=== PATIENT | male | born 1975 | race Hispanic/Latino ===

== ENCOUNTER 2021-04-13 11:17 | Emergency (ER) | payer BC, SELFPAY ==
--- NOTE | 2021-04-13 11:28 | ED.SKABFB ---
HPI - Skin/Abscess/Foreign Bdy General Chief complaint: Skin/Abscess/Foreign Body Stated complaint: Skin Hurts Time Seen by Provider: 04/13/21 11:29 Source: patient, family (), RN notes reviewed and old records reviewed Mode of arrival: ambulatory Limitations: no limitations History of Present Illness HPI narrative: 45-year-old male presents to the [facility] with with complaints of my skin hurts. Patient has no lesions. Patient states that sure it made his skin. No muscular pain. Unable to reproduce pain. No lesions, rashes, sores. Status generalized over his skin. No localization. Patient reports that he had something similar a couple of years ago. Reviewed records from 2018 when he was seen in the ER and told to take Benadryl, was given IV fluids. Patient denies any abdominal pain, fevers, nausea, vomiting. Denies any chest pain or shortness of breath. No swelling of the lips or tongue. No rashes. Related Data Home Medications Medication Instructions Recorded Confirmed No Home Medications 04/13/21 04/13/21 Allergies Allergy/AdvReac Type Severity Reaction Status Date / Time No Known Allergies Allergy Unverified 04/13/21 11:27 Review of Systems Constitutional: Constitutional: Reports no additional constitutional complaints, Denies chills and Denies fever(s) Eyes: Eyes: Reports no additional eye complaints, Denies change in vision and Denies photophobia ENT: Reports system reviewed and no additional complaints, except as documented Cardiovascular: Cardiovascular: Reports no additional cardiovascular complaints Respiratory: Respiratory: Reports no additional respiratory complaints Gastrointestinal: Gastrointestinal: Reports no additional gastrointestinal complaints Genitourinary: Genitourinary: Reports no additional male genitourinary complaints Musculoskeletal: Musculoskeletal: Reports no additional musculoskeletal complaints Integumentary/Breasts: Skin/Breast: Reports as per HPI Comments: Skin pain Neurologic: Reports system reviewed and no additional complaints, except as documented, Denies vertigo, Denies dizziness, Denies syncope, Denies focal weakness, Denies numbness and Denies weakness Psychiatric: Psychiatric: Reports no additional psychiatric complaints Allergic/Immunologic: Allergic/Immunologic: Reports no additional allergic/immunologic complaints PMF Past Medical History Medical History (Updated 04/13/21 @ 17:55 by Jovita Tristan) Patient denies medical problems Surgical History Surgical History (Updated 04/13/21 @ 17:55 by Jovita Tristan) No significant past surgical history Social History Social History (Updated 04/13/21 @ 17:55 by Jovita Tristan) Living arrangements: with family Gender identity (if verbalized by the patient): Male Comments At the time of my signature, I reviewed and agree with the nursing past medical, surgical, social, and family history. There is no relevant family history pertinent to the patient complaint. Exam Const: General: healthy appearing, no acute distress and alert Nutritional Appearance: well nourished Orientation/consciousness: patient oriented x3 Limitations: no limitations HENMT: Head: normal to inspection Ears: external ears normal Eyes: Conjunctivae: conjunctivae normal Pupils: Equal, round and reactive pupils present Neck: Neck: normal visual inspection, no lymphadenopathy and no meningeal signs Chest: Chest palpation & inspection: normal inspection of the chest Resp: Effort & Inspection: normal respiratory effort and no use of accessory muscles Auscultation: clear to auscultation bilaterally, no crackles, no rales, no rhonchi and no wheezes Cardio: Rate: regular rate Rhythm: regular rhythm GI: GI Palp: Yes Soft to palpation and No Tenderness to palpation present (GI) Back/Spine/Pelvis: Back: no CVA tenderness Skin: General skin exam: normal color, no rashes or lesions noted, turgor normal, skin n
[2021-04-13 11:29] VITALS: BP 119/61; PULSE 60; RESP 16; TEMP 36.7; O2SAT 100
[2021-04-13 11:57] LABS: Glucose Point of Care 102 mg/dl (65-105)
== END 2021-04-13 12:03 | disposition home or self-care (01) ==
PROVIDERS: Emergency Provider Nurse Practitioner
DX: M79.10 Myalgia, unspecified site (principal); R20.9 Unspecified disturbances of skin sensation
CPT/HCPCS: 82948; 99212; G0463

== ENCOUNTER 2021-04-14 09:48 | Emergency (ER) | payer OTHER, BC, SELFPAY ==
--- NOTE | ~2021-04-14 | CT_ITS ---
EXAMINATION: CT abd pelvis lumbar w con EXAM DATE: 04/14/2021 11:36 INDICATION: Abdominal pain, bilateral flank pain. TECHNIQUE: Spiral CT of the abdomen and pelvis was performed following intravenous injection of 100 m L Omnipaque 350. Axial, coronal and sagittal images of the abdomen and pelvis were reviewed. Spiral CT of the lumbar spine was performed with same injection of contrast. Axial, coronal and sagittal i mages lumbar spine were reviewed. The dose-length product (DLP) for this examination was 502.77 mGy -cm. The exposure was tailored according to patient size (auto mA exposure control), and iterative r econstruction (ASIR) was used as additional dose reduction technique. There is no prior study for co mparison. FINDINGS: ABDOMEN PELVIS: The liver, spleen, adrenal glands and pancreas are unremarkable. Gallbladder is unre markable. No biliary obstruction. Portal and splenic veins are patent. Kidneys enhance symmetrical ly. There is no hydronephrosis. The prostate is unremarkable. The bladder is unremarkable. There is left lower retroperitoneal lymph node measuring 9 x 11 mm, upper limits of normal. Lymph node l eft pelvic inlet measuring 2.5 x 1.0 cm, mildly enlarged. The appendix is normal. The stomach and small bowel are unremarkable. There is expected amount of c olonic stool. No free intraperitoneal gas. The heart is normal in size. There are no pericardial or pleural effusions. Scattered linear basilar atelectasis. There are no osteoblastic or osteolyti c lesions identified. LUMBAR SPINE: There is no evidence of acute lumbar fracture. There is no disc space widening or trau matic vertebral body subluxation suspected. Paraspinal soft tissue is unremarkable. There is mild t o moderate loss of the L4-5 disc height with 3 mm anterolisthesis. No spondylolysis. Mild chronic com pression fracture of L1. Level by level evaluation: T12-L1: Disc does not extend beyond the endplate margin. Facet arthropathy: None. Neural foraminal stenosis: No stenosis. Central canal stenosis: No stenosis. L1-L2: There is a mild diffuse disc bulge. Facet arthropathy: Mild. Neural foraminal stenosis: No stenosis. Central canal stenosis: No stenosis. L2-L3: There is a mild diffuse disc bulge. Facet arthropathy: Mild. Neural foraminal stenosis: Mild right. Central canal stenosis: Mild. L3-L4: There is a mild diffuse disc bulge. Facet arthropathy: Mild to moderate. Neural foraminal stenosis: Mild to moderate bilateral. Central canal stenosis: Mild to moderate. L4-L5: There is a mild to moderate diffuse disc bulge. Facet arthropathy: Severe. Neural foraminal stenosis: Moderate to severe right, moderate left. Central canal stenosis: Moderate centrally, moderate to severe bilateral lateral recess stenosis. L5-S1: There is a mild diffuse disc bulge. Facet arthropathy: Moderate to severe left, moderate right. Neural foraminal stenosis: Mild to moderate bilateral. Central canal stenosis: No stenosis. IMPRESSION: 1. No acute intra-abdominal findings. 2. Bibasilar scattered subsegmental atelectasis. 3. L4-5 advanced facet arthropathy, significant lateral recess stenosis, grade 1 anterolisthesis. 4. Lower retroperitoneal, left pelvic borderline sized lymph nodes, probably reactive but consider 3 month follow-up abdomen pelvis CT. Reviewed, dictated and finalized at location A. IMPRESSION: 1. No acute intra-abdominal findings. 2. Bibasilar scattered subsegmental atelectasis. 3. L4-5 advanced facet arthropathy, significant lateral recess stenosis, grade 1 anterolisthesis. 4. Lower retroperitoneal, left pelvic borderline sized lymph nodes, probably r eactive
[2021-04-14 09:52] VITALS: BP 114/80; PULSE 71; RESP 16; TEMP 36.4; O2SAT 100
--- NOTE | 2021-04-14 09:56 | ED.BACK ---
HPI - Back Pain/Injury General Chief Complaint: Back Pain/Injury Stated Complaint: Back Pain Time Seen by Provider: 04/14/21 09:54 Source: patient Mode of arrival: ambulatory Limitations: no limitations History of Present Illness HPI Narrative: Patient is a 45 previously healthy male presenting for evaluation of abdominal pain and back pain. Pt has had no difficulty with ambulation, but reports lower back pain which is dull, aching in nature. Pt also reports frontal abdominal pain in the lower abdomen, and reported burning with urination. He additional reports skin pain all over his body, but denies any rashes or lesions. Patient was seen yesterday at an urgent care, examination was negative and he was told to follow-up with his primary care physician. He has been taking Benadryl and Aleve without much improvement in his symptoms. He denies any history of IV drug use, alcohol use or tobacco use. Denies history of back pain. Patient is quite physically fit per his partner at bedside. States that he works out daily. Patient denies any heavy bending or lifting outside of his usual. No recent fall or injury. No inciting event when the pain began. Patient states that the skin irritation has been present over the past 2 weeks, also reports lower back pain has been worsening over the past 72 hours. Patient denies any fever, chills, nausea or vomiting. No chest pain, cough or shortness Related Data Allergies Allergy/AdvReac Type Severity Reaction Status Date / Time No Known Allergies Allergy Verified 04/14/21 09:56 Review of Systems Review of Systems: CONSTITUTIONAL: Denies fever, chills, or sweats. EYES: Denies visual changes, redness, or discharge. ENT: Denies rhinorrhea, congestion, sore throat, or otalgia. CARDIOVASCULAR: Denies chest pain, palpitations, or edema. RESPIRATORY: Denies cough or dyspnea. GASTROINTESTINAL: Reports abdominal pain, without nausea or vomiting GENITOURINARY: Reports dysuria, denies hematuria SKIN: Denies rash or itching, no hives, reports skin pain in both arms MUSCULOSKELETAL: Reports back pain NEUROLOGIC: Denies headache, numbness, or weakness. [facility] Past Medical History Medical History Patient denies medical problems Surgical History Surgical History No significant past surgical history Social History Social History (Updated 04/14/21 @ 10:11 by Jennie Clay MD) Smoking status: Never smoker Second hand tobacco smoke exposure: No Alcohol intake: never Substance use: never Living arrangements: with family Occupation/Education: occupation Additional occupation/education comments: Works for a [employer] company Gender identity (if verbalized by the patient): Male Exam Narrative: GENERAL: Awake, alert, conversant HEAD: Normocephalic, atraumatic. EYES: PERRLA and EOMI. ENT: Nares clear, no rhinorrhea or epistaxis. Mucous membranes moist. NECK: Supple. CHEST: No respiratory distress, breathing even and non labored HEART: Regular rate, sinus rhythm ABDOMEN:Non distended, non tender Thorax: Positive lumbar midline tenderness, no cervical or thoracic midline tenderness, positive lumbar paraspinal tenderness bilaterally, positive CVA tenderness bilaterally EXTREMITIES: Normal range of motion. No edema. SKIN: Warm, dry, no rash. NEURO:No focal deficits. Alert and oriented x3 Course Vital Signs Vital signs: Vital Signs Temperature 36.4 C 04/14/21 09:52 Pulse Rate 71 04/14/21 09:52 Respiratory Rate 16 04/14/21 09:52 Blood Pressure 114/80 04/14/21 09:52 Pulse Oximetry 100 04/14/21 09:52 Temperature 36.4 C 04/14/21 09:52 Pulse Rate 71 04/14/21 09:52 Respiratory Rate 16 04/14/21 09:52 Blood Pressure 114/80 04/14/21 09:52 Pulse Oximetry 100 04/14/21 09:52 MDM - Back Pain/Injury MDM Narrative Medical decision making narrat
[2021-04-14 10:23] LABS: Basophils Absolute Auto 0.1 K/mm3 (0.0-0.1); Basophils Percent Auto 0.6 % (0.2-1.2); Eosinophils Absolute Auto 0.3 K/mm3 (0-0.3); Eosinophils Percent Auto 3.8 % (0-4.4); Hematocrit 37.7 % (42.0-52.0); Hemoglobin 13.8 g/dL (14.0-18.0); Immature Granulocyte Absolute 0.06 K/mm3 (0.00-0.031); Immature Granulocyte Percent A 0.7 % (0-0.5); Lymphocytes Absolute Auto 1.04 K/mm3 (0.9-3.2); Mean Corpuscular HGB Conc 36.6 g/dl (32-36); Mean Corpuscular Hemoglobin 31.4 pg (26-34); Mean Corpuscular Volume 85.7 fl (80-100); Mean Platelet Volume 9.6 fl (7.4-10.4); Monocytes Absolute Auto 0.7 K/mm3 (0.1-0.6); Monocytes Percent Auto 7.9 % (2.6-8.5); Neutrophils Absolute Auto 6.5 K/mm3 (1.3-6.7); Platelet Count Result 276 k/mm3 (150-375); Red Cell Distribution Width 11.9 % (11.5-14.5); White Blood Count 8.7 K/mm3 (4.5-10.0)
[2021-04-14] MEDS: MORPHINE SULFATE (*CRX) 4 MG/ML INJ 2 MG IV PUSH (10:24)
[2021-04-14] MEDS: SODIUM CHLORIDE 0.9% IV 1,000 ML 999 ML IV CONT (10:24)
[2021-04-14] MEDS: ONDANSETRON INJ 4 MG/2 ML VIAL IV PUSH (10:24)
[2021-04-14] MEDS: ACETAMINOPHEN 500 MG TABLET 1000 MG PO (10:24)
[2021-04-14 10:55] LABS: Add Urine Microscopic? NO; Appearance Urine Clear (Clear); Bilirubin Urine Negative (Negative); Blood Urine Negative (Negative); Color Urine Yellow (Yellow); Glucose Urine UA Negative (Negative); Ketones Urine Negative (Negative); Leukocyte Esterase Ur Negative LEU/UL (Negative); Nitrate Urine Negative (Negative); Protein Urine Negative (Negative); Specific Grav Ur 1.018 (1.001-1.035); Urobilinogen Urine Negative mg/dL (<2.0)
[2021-04-14 11:12] LABS: Alanine Aminotransferase 30 U/L (4-50); Albumin Level 4.2 g/dL (3.5-5.1); Alkaline Phosphatase 102 U/L (38-126); Anion Gap 6 mmol/L (8-16); Aspartate Amino Transferase 24 U/L (17-59); Bilirubin,Total 0.5 mg/dL (0.2-1.3); Blood Urea Nitrogen 15 mg/dL (9-20); Calcium 9.1 mg/dL (8.4-10.2); Carbon Dioxide 27 mmol/L (22-30); Chloride 106 mmol/L (98-107); Estimated CRCL calculation 75 ml/min; Estimated Glomerular Filt Rate > 60; Glucose 108 mg/dL (65-110); Lipase 80 U/L (23-300); Potassium 4.6 mmol/L (3.4-5.0); Sodium 139 mmol/L (137-145)
[2021-04-14 12:42] LABS: Erythrocyte Sedimentation Rate 26 mm/hr (0-20)
[2021-04-14 12:47] VITALS: BP 110/65; PULSE 58; RESP 16; O2SAT 99
[2021-04-14 13:02] LABS: CRP 3.3 mg/dL (<1.0)
[2021-04-14 13:43] LABS: Creatine Kinase 120 U/L (55-170)
== END 2021-04-14 12:48 | disposition home or self-care (01) ==
PROVIDERS: Emergency Provider Emergency Medicine; PCP Family Medicine
DX: M48.061 Spinal stenosis, lumbar region without neurogenic claudication (principal); M48.50XA Collapsed vertebra, not elsewhere classified, site unspecified, initial encounter for fracture
CPT/HCPCS: 36415; 72132; 74177; 80053; 81003; 82550; 83690; 85025; 85652; 86140; 96361; 96374; 96375; 99284; A9270; J2270; J2405; J7030; Q9967

== ENCOUNTER 2021-06-01 08:25 | Emergency (ER) | payer OTHER, BC, SELFPAY ==
--- NOTE | ~2021-06-01 | CT_ITS ---
EXAMINATION: CT lumbar spine wo con DATE: 06/01/2021 11:40 INDICATION: Compression fracture. TECHNIQUE: Computed tomography (CT) of the lumbar spine was performed without intravenous contrast. A utomated exposure control and iterative reconstruction technique were employed. The dose-length produ ct was 618.82 mGy-cm. COMPARISON: CT lumbar spine 04/14/2021 FINDINGS: There is 4 mm anterolisthesis of L4 on L5. There is mild chronic anterior wedging of T11-L1 vertebral bodies. There is mildly decreased disc height at L4-L5. There is an increased number of no rmal-sized retroperitoneal lymph nodes, likely reactive. The following disc levels are specifically d iscussed: L1-L2: The disc is bulging. There is mild bilateral facet joint osteoarthritis. There is mild bilater al neural foraminal stenosis. There is no central canal stenosis. L2-L3: The disc is bulging. There is mild bilateral facet joint osteoarthritis. There is mild bilater al neural foraminal stenosis. There is mild central canal stenosis. L3-L4: The disc is bulging. There is moderate bilateral facet joint osteoarthritis. There is moderate bilateral neural foraminal stenosis. There is mild central canal stenosis. L4-L5: The disc is bulging. There is severe bilateral facet joint osteoarthritis. There is moderate b ilateral neural foraminal stenosis. There is mild central canal stenosis. L5-S1: The disc does not extend beyond the endplate margin. There is severe bilateral facet joint ost eoarthritis. There is mild bilateral neural foraminal stenosis. There is no central canal stenosis. IMPRESSION: 1. Moderate lumbar spondylosis. Reviewed, dictated and finalized at location A. [employer]
[2021-06-01 09:30] VITALS: BP 110/63; PULSE 61; RESP 18; TEMP 36.9; O2SAT 99
--- NOTE | 2021-06-01 11:04 | ED.GENADULT ---
HPI - General Adult General Chief complaint: Back Pain/Injury Stated complaint: back pain/needs work release Time Seen by Provider: 06/01/21 10:05 Source: patient Mode of arrival: ambulatory Limitations: no limitations History of Present Illness HPI narrative: Patient presents for evaluation of low back pain. He was seen at urgent care at the end of March for the same complaint. He was referred to the emergency department at that time. Documentation from that ER stay indicates that there was no precipitating event. Patient had a CT of his abdomen pelvis as well as lumbar spine. CT showed bibasilar scattered subsegmental atelectasis, L4-5 advanced facet arthropathy, significant lateral recess stenosis, grade 1 anterolisthesis, retroperitoneal, left pelvic borderline size lymph nodes, probable reactive. There was also a chronic L1 compression fracture. Pt tells me today that four days prior to his presentation at urgent care he was moving a copy machine at work and felt a burst of pain in his low back. He states he is under workman's compensation claim but has not been evaluated by physician associated with this claim. He is unable to get in to see his primary care provider for several months. He states he was advised by his employer to come to the ER for assessment of interval progression of his injury. He states his pain level is 1/10. He describes this as a squeezing sensation. No radicular component. No saddle anesthesia. No bladder or bowel incontinence. He is not taking any medication for his pain. He has been on light duty at work. Related Data Allergies Allergy/AdvReac Type Severity Reaction Status Date / Time No Known Allergies Allergy Verified 04/14/21 09:56 Review of Systems Review of Systems: CONSTITUTIONAL: Denies fever, chills, or sweats. EYES: Denies visual changes, redness, or discharge. ENT: Denies rhinorrhea, congestion, sore throat, or otalgia. CARDIOVASCULAR: Denies chest pain, palpitations, or edema. RESPIRATORY: Denies cough or dyspnea. GASTROINTESTINAL: Denies abdominal pain, nausea, vomiting, or diarrhea. GENITOURINARY: Denies dysuria or hematuria. SKIN: Denies rash or itching. MUSCULOSKELETAL: Reports back pain. Denies joint pain, or myalgia. NEUROLOGIC: Denies headache, numbness, dizziness, or weakness. PSYCHIATRIC: Denies anxiety or depression. [facility] Past Medical History Medical History (Updated 06/01/21 @ 12:20 by IVONNE Marino, ) Back pain Patient denies medical problems Surgical History Surgical History No significant past surgical history Family History Family History Mother No pertinent family history Social History Social History Smoking status: Never smoker Second hand tobacco smoke exposure: No Alcohol intake: never Substance use: never Additional occupation/education comments: Works for a [employer] company Gender identity (if verbalized by the patient): Male Exam Narrative: GENERAL: Well-appearing, well-nourished, and in no acute distress. HEAD: Normocephalic, atraumatic. EYES: PERRLA and EOMI. ENT: Nares clear, no rhinorrhea or epistaxis. Mucous membranes moist. Oropharynx without tonsillar hypertrophy exudate or other lesions. Bilateral TMs pearly sharp nonbulging NECK: Supple. No adenopathy or masses. No carotid bruits or JVD CHEST: Clear to auscultation. No respiratory distress. No wheezes rales or rhonchi HEART: Regular rate and rhythm. No murmur heard. Normal peripheral pulses. ABDOMEN: Soft, nontender, nondistended, normal active bowel sounds. BACK: Tenderness in midline and paraspinous muscles bilaterally of the lumbar spine EXTREMITIES: Normal range of motion. No edema. SKIN: Warm, dry, no rash. NEURO: No focal deficits. Alert and oriented x3. PSYCH: No
== END 2021-06-01 12:52 | disposition home or self-care (01) ==
PROVIDERS: Emergency Provider Nurse Practitioner
DX: M51.86 Other intervertebral disc disorders, lumbar region (principal)
CPT/HCPCS: 72131; 99284

== ENCOUNTER 2022-11-16 17:04 | Emergency (ER) | payer OTHER, SELFPAY ==
--- NOTE | ~2022-11-16 | XR_ITS ---
EXAMINATION: XR abdomen obstructive series DATE: 11/16/2022 17:58 INDICATION: Abdominal pain TECHNIQUE: Upright and supine views of the abdomen were obtained. COMPARISON: None. FINDINGS: No free intraperitoneal gas is identified. There appears to be a small amount of gas in the pylorus and fundus of the otherwise fluid-filled stomach on the upright view. A large volume of colo caity stool is present. The lung bases are clear. IMPRESSION: 1. Constipation. Reviewed, dictated and finalized at location F. IMPRESSION: 1. Constipation.
[2022-11-16 17:18] VITALS: BP 147/83; PULSE 60; RESP 14; TEMP 36.2; O2SAT 98
--- NOTE | 2022-11-16 17:18 | ED.ABDPAIN ---
HPI - Abdominal Pain General Chief Complaint: Back Pain/Injury Stated Complaint: Pain in back & stomach Time Seen by Provider: 11/16/22 17:18 Source: patient Mode of arrival: ambulatory Limitations: no limitations History of Present Illness HPI narrative: Georges is a 47-year-old male patient presenting to the clinic today with complaints of stomach and back pain that began this morning. He reports pain feel as though his started in the right lower back and radiates into the abdomen. He denies any urinary symptoms or penile discharge. Last bowel movement was this morning and normal for him. Denies any blood in his stool. No nausea or vomiting. No injury known to his back. States that position changes make it worse and he is unable to lay on either side. Related Data Home Medications Medication Instructions Recorded Confirmed No Home Medications 11/16/22 11/16/22 Allergies Allergy/AdvReac Type Severity Reaction Status Date / Time No Known Allergies Allergy Verified 11/16/22 17:06 Review of Systems Review of Systems: Pertinent positives per HPI. Patient denies any fever, chills, rash, headache, visual changes, dizziness, cough, runny nose, sore throat, shortness of breath, chest pain, palpitations, nausea, vomiting, diarrhea, constipation, abdominal pain, or any urinary issues. [facility] Past Medical History Medical History Back pain Patient denies medical problems Surgical History Surgical History No significant past surgical history Family History Family History Mother No pertinent family history Social History Social History Smoking status: Never smoker Second hand tobacco smoke exposure: No Alcohol intake: never Substance use: never Living arrangements: with family Occupation/Education: occupation Additional occupation/education comments: Works for a [employer] Gender identity (if verbalized by the patient): Male Comments At the time of my signature, I reviewed and agree with the nursing past medical, surgical, social, and family history. There is no relevant family history pertinent to the patient complaint. Exam Narrative: General: Well-developed, well nourished, in no apparent distress. Head: Normocephalic, atraumatic. Cardio: Regular rate and rhythm, s1 and s2 normal, no murmur appreciated. Resp: Clear to auscultation bilaterally, no rhonchi, rales, wheezing or rubs. Abdomen: Soft, pliable, bowel sounds present in all quadrants, mild tender to palpation over the mid abdomen, no organomegly, no CVAT tenderness. Course Course Emergency Course: Portions of this record may have been created with voice recognition software. Level of Care: Express Care Visit Vital Signs Vital signs: Vital signs reviewed MDM - Abdominal Pain MDM Narrative Medical decision making narrative: At the time of visit patient is resting comfortably on the exam table. UA was negative for any sign of infection, protein, glucose, or blood. Abdominal x-ray was performed and shows large amount of stool in the colon suggestive of constipation. Supportive measures were discussed with the patient and the family member and they voiced understanding discharge instructions and agreed to the treatment plan. Differential Diagnosis Differential diagnosis: Likely abdominal pain, calculus of kidney, constipation, gastroenteritis and small bowel obstruction Imaging Data Radiologist's impression: [facility] [address] [place] [address] XRay Report Signed Patient: Georges Way : 1975 MR#: [id number] Age/Sex: 47 / M Acct:[id number] Loc: [facility]? ? ADM Date: 11/16
[2022-11-16 17:29] LABS: Glucose Point of Care 102 mg/dl (65-105)
== END 2022-11-16 18:15 | disposition home or self-care (01) ==
PROVIDERS: Emergency Provider Nurse Practitioner Family
DX: K59.00 Constipation, unspecified (principal)
CPT/HCPCS: 74019; 81003; 82948; 99213; G0463